=== PATIENT | male | born 1960 | race Caucasian/White ===

== ENCOUNTER 2019-05-17 17:08 | Outpatient (CLI) | payer BC, SELFPAY ==
--- NOTE | ~2019-05-17 | US_ITS ---
EXAMINATION: US venous doppler [facility] DATE: 05/17/2019 18:05 INDICATION: Right lower limb swelling. TECHNIQUE: Grayscale ultrasound images without and with compression and Doppler ultrasound images of the bilateral lower extremity veins were obtained. COMPARISON: None. FINDINGS: The visualized portions of right common femoral vein, profunda (deep) femoral vein, femoral vein, pop liteal vein, peroneal veins, posterior tibial veins, and greater saphenous vein outflow are patent. The visualized portions of left common femoral vein, profunda femoral vein, femoral vein, popliteal v ein, peroneal veins, posterior tibial veins, and greater saphenous vein outflow are patent. IMPRESSION: 1. No deep venous thrombosis. Reviewed, dictated and finalized at location A.
== END 2019-05-17 17:09 | disposition home or self-care (01) ==
PROVIDERS: PCP Internal Medicine; Visit Provider Internal Medicine
DX: R22.40 Localized swelling, mass and lump, unspecified lower limb (principal)
CPT/HCPCS: 93970

== ENCOUNTER → 2022-11-28 08:35 | Outpatient (CLI) | payer BC, SELFPAY ==
--- NOTE | ~2022-11-28 | MR_ITS ---
MRI of the lumbar spine Clinical History: Radiculopathy Technique: Axial T2-weighted images, and sagittal T1-weighted, T2-weighted, and STIR images were acqu ired. Following intravenous administration of 20 cc MultiHance gadolinium, T1-weighted fat-sat imagin g was performed in the axial and sagittal planes. Findings: No acute fracture identified. There is 4-5 mm retrolisthesis of L2 over L3. There is minima l grade 1 retrolisthesis of L4 over L5. There is posterior fusion hardware from L3 through L5, with b ilateral rods and transpedicular screws present. There are laminectomy defects at L3 and L4. No suspi cious bone marrow signal abnormality seen. At L1-L2, there is severe degenerative disc narrowing. There is diffuse mild disc bulge with moderate to advanced facet arthropathy. No maxine central canal stenosis. There is mild right neural foraminal narrowing. Left neural foramen preserved. At L2-L3, there is severe degenerative disc narrowing. There is diffuse disc bulge with moderate to a dvanced facet arthropathy. There is mild to moderate thecal sac compression, with focally prominent p osterior epidural fat is visible as well. There is moderate to severe bilateral neural foraminal narr owing. At L3-L4, there is moderate degenerative disc narrowing. There is posterior decompression with severe facet arthropathy. No central canal stenosis. There is moderate to severe left neural foraminal narr owing. Right neural foramen preserved. At L4-L5, there is minimal disc bulge with severe facet arthropathy and posterior decompression. No c entral canal stenosis. There is severe right neural foraminal narrowing and moderate to severe left n eural foraminal narrowing. At L5-S1, there is no significant disc bulge. There is severe facet arthropathy. No definite central canal stenosis. There is moderate bilateral neural foraminal narrowing. Paravertebral soft tissues are unremarkable aside from expected postoperative change. No suspicious p ostcontrast enhancement identified. Impression: Posterior fusion from L3 through L5, as detailed above. 4-5 mm retrolisthesis of L2 over L3. Moderate to severe degenerative spondylosis, as detailed above. Reviewed, dictated and finalized at location M. Impression: Posterior fusion from L3 through L5, as detailed above. 4-5 mm retrolisthesis of L2 over L3. Moderate to severe degenerative spondylosis, as detailed above.
== END ==
PROVIDERS: PCP Nurse Practitioner Family; Visit Provider Nurse Practitioner Family
DX: M54.16 Radiculopathy, lumbar region (principal); Z98.1 Arthrodesis status; M43.06 Spondylolysis, lumbar region
CPT/HCPCS: 72158; A9577

== ENCOUNTER 2023-01-20 09:20 | Outpatient (CLI) | payer BC, SELFPAY ==
--- NOTE | 2023-01-20 11:00 | NEURO_ITS ---
Impression: # Diabetic of long duration complains of increasing numbness of lower extremities with significant edema. 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 # Needle/EMG exam revealed neurogenic changes in right more than left lower extremity musccles. Nerve Conduction Studies Anti Sensory Summary Table Stim Site NR Peak (ms) P-T Amp (?V) Site1 Site2 Delta-P (ms) Dist (cm) Hira (m/s) Left Saphenous Anti Sensory (Ant Med Mall) 14cm 3.5 5.3 14cm Ant Med Mall 3.5 0.0 Right Saphenous Anti Sensory (Ant Med Mall) NO RESPONSE 14cm NR 14cm Ant Med Mall 0.0 Left Sup Fibular Anti Sensory (Ant Lat Mall) NO RESPONSE 14 cm NR 14 cm Ant Lat Mall 16.0 Right Sup Fibular Anti Sensory (Ant Lat Mall) NO RESPONSE 14 cm NR 14 cm Ant Lat Mall 16.0 Left Sural Anti Sensory (Lat Mall) NO RESPONSE Calf NR Calf Lat Mall 16.0 Right Sural Anti Sensory (Lat Mall) NO RESPONSE Calf NR Calf Lat Mall 16.0 Motor Summary Table Stim Site NR Onset (ms) O-P Amp (mV) Site1 Site2 Delta-0 (ms) Dist (cm) Hira (m/s) Left Peroneal Motor (Vastus Med) Ankle 4.5 0.9 Popit Ankle 9.8 42.0 43 Popit 14.3 0.3 Right Peroneal Motor (Vastus Med) NO RESPONSE Ankle NR Popit Ankle 0.0 Popit NR Left Tibial Motor (Abd Nelson Brev) Ankle 4.9 2.2 Knee Ankle 11.6 42.0 36 Knee 16.5 1.5 Right Tibial Motor (Abd Nelson Brev) Ankle 5.5 3.6 Knee Ankle 10.8 47.0 44 Knee 16.3 2.0 F Wave Studies NR F-Lat (ms) L-R F-Lat (ms) Left Peroneal (Mrkrs) (EDB) 56.48 Right Peroneal (Mrkrs) (EDB) DISPERSED RESPONSE NR Left Tibial (Mrkrs) (Abd Hallucis) 57.20 1.79 Right Tibial (Mrkrs) (Abd Hallucis) 58.99 1.79 EMG Side Muscle Nerve Root Ins Act Fibs Amp Dur Recrt Comment Right AntTibialis Dp Br Fibular L4-5 Nml Nml Nml >12ms Reduced Right Gastroc Tibial S1-2 Nml Nml Nml >12ms Reduced Right Fibularis Long Sup Br Fibular L5-S1 Nml Nml Nml >12ms Reduced Right Flex Dig Long Tibial L5-S2 Nml Nml Nml Nml Nml Right Ext Dig Brev Dp Br Fibular L5, S1 Nml Nml Nml >12ms Reduced Left AntTibialis Dp Br Fibular L4-5 Nml Nml Nml >12ms Reduced Left Gastroc Tibial S1-2 Nml Nml Nml >12ms Reduced Left Fibularis Long Sup Br Fibular L5-S1 Nml Nml Nml Nml Nml Left Flex Dig Long Tibial L5-S2 Nml Nml Nml Nml Nml Left Ext Dig Brev Dp Br Fibular L5, S1 Nml Nml Nml >12ms Reduced Right ExtHallLong Dp Br Fibular L5, S1 Nml Nml Nml >12ms Reduced Left ExtHallLong Dp Br Fibular L5, S1 Nml Nml Nml Nml Nml MTDD
== END 2023-01-20 09:21 | disposition home or self-care (01) ==
LOC: ANHNEURO 09:22
PROVIDERS: PCP Internal Medicine; Visit Provider Podiatrist Foot & Ankle Surgery
DX: E11.40 Type 2 diabetes mellitus with diabetic neuropathy, unspecified (principal); R94.131 Abnormal electromyogram [EMG]
CPT/HCPCS: 95886; 95911

== ENCOUNTER 2023-04-13 08:21 | Emergency (ER) | payer BC, OTHER, SELFPAY ==
[2023-04-13] VITALS (9 sets, daily range): BP systolic 105–175; BP diastolic 54–89; PULSE 53–73; RESP 15–20; TEMP 36.4; O2SAT 93–97
--- NOTE | ~2023-04-13 | XR_ITS ---
Clinical Indication: Shortness of breath PA and lateral views of the chest: Comparison: None Findings: The lungs are clear, without evidence of focal consolidation or pleural effusion. Cardiome diastinal silhouette is within normal limits. Bones and soft tissues are unremarkable. Impression: Normal chest. Reviewed, dictated and finalized at [facility]. TOR USE ASSISTANT Impression: Normal chest.
--- NOTE | 2023-04-13 08:25 | ECG_ITS ---
Measurements Intervals [place] Rate: 65 P: 65 UT: 163 QRS: -4 QRSD: 105 T: 52 QT: 407 QTc: 425 Interpretive Statements SINUS RHYTHM INCOMPLETE RIGHT BUNDLE BRANCH BLOCK [90+ ms QRS DURATION, TERMINAL R IN V1/V2, 40+ ms S IN I/aVL/V4/V5/V6] BORDERLINE ECG NO PREVIOUS ECG AVAILABLE FOR COMPARISON Electronically Signed On 04-13-2023 18:25:10 WORSHIP DIRECTOR by Chino Jones M.D.
[2023-04-13 08:47] LABS: Basophils Percent Auto 0.7 % (0.2-1.2); Eosinophils Absolute Auto 0.1 K/mm3 (0-0.3); Hematocrit 41.6 % (42.0-52.0); Hemoglobin 13.4 g/dL (14.0-18.0); Immature Granulocyte Absolute 0.03 K/mm3 (0.00-0.031); Immature Granulocyte Percent A 0.5 % (0-0.5); Lymphocytes Absolute Auto 1.66 K/mm3 (0.9-3.2); Lymphocytes Percent Auto 30.1 % (18.3-44.2); Mean Corpuscular HGB Conc 32.2 g/dl (32-36); Mean Corpuscular Volume 93.1 fl (80-100); Mean Platelet Volume 9.2 fl (7.4-10.4); Monocytes Absolute Auto 0.5 K/mm3 (0.1-0.6); Monocytes Percent Auto 9.8 % (2.6-8.5); Neutrophils Absolute Auto 3.1 K/mm3 (1.3-6.7); Neutrophils Percent Auto 56.9 % (45.5-73.1); Platelet Count Result 214 k/mm3 (150-375); Red Blood Count 4.47 M/mm3 (4.6-6.20); Red Cell Distribution Width 13.3 % (11.5-14.5); White Blood Count 5.5 K/mm3 (4.5-10.0)
[2023-04-13 08:59] LABS: Alanine Aminotransferase 82 U/L (6-50); Alkaline Phosphatase 38 U/L (38-126); Anion Gap 5 mmol/L (8-16); Aspartate Amino Transferase 65 U/L (17-59); Bilirubin,Total 0.4 mg/dL (0.2-1.3); Blood Urea Nitrogen 13 mg/dL (9-20); Calcium 9.1 mg/dL (8.4-10.2); Carbon Dioxide 28 mmol/L (22-30); Chloride 107 mmol/L (98-107); Estimated CRCL calculation 117 ml/min; Estimated Glomerular Filt Rate > 60; Glucose 174 mg/dL (65-110); Sodium 140 mmol/L (137-145)
[2023-04-13 09:40] LABS: Influenza A QL RT-PCR Negative (Negative); Influenza B QL RT-PCR Negative (Negative); RSV RNA, RT-PCR Negative (Negative); SARS-CoV-2 RNA PCR Negative (Negative)
--- NOTE | 2023-04-13 11:01 | ED.SOB ---
HPI - SOB/Dyspnea General Chief Complaint: Shortness of Breath/Dyspnea Stated Complaint: shortness of breath Time Seen by Provider: 04/13/23 08:38 History of Present Illness HPI Narrative: patient is a 62-year-old male who presents ER with shortness of breath. He has developed cough today. He feels like his lungs arm. Cough is not productive. Mild sinus congestion but no sore throat. No fevers or chills or sweats. No history of heart failure. Reports chronic edema to lower extremities. Denies orthopnea. Related Data Home Medications Medication Instructions Recorded Confirmed aspirin 81 mg tablet,delayed 81 mg PO DAILY 05/08/20 05/08/20 release (Adult Low Dose Aspirin) escitalopram oxalate 20 mg tablet 20 mg PO DAILY 05/08/20 05/08/20 (Lexapro) fenofibrate nanocrystallized 145 145 mg PO DAILY 05/08/20 05/08/20 mg tablet furosemide 40 mg tablet (Lasix) 40 mg PO QAM 05/08/20 05/08/20 lisinopril 10 mg tablet 10 mg PO DAILY 05/08/20 05/08/20 pravastatin 40 mg tablet 40 mg PO DAILY 05/08/20 05/08/20 spironolactone 100 mg tablet 100 mg PO DAILY 05/08/20 05/08/20 trazodone 150 mg tablet 150 mg PO QHS PRN Insomnia 05/08/20 05/08/20 Allergies Allergy/AdvReac Type Severity Reaction Status Date / Time Penicillins Allergy Unknown Verified 04/13/23 08:35 acetaminophen [From Percocet] AdvReac Hallucinati Verified 04/13/23 08:22 ng oxycodone [From Percocet] AdvReac Hallucinati Verified 04/13/23 08:22 ng Review of Systems Review of Systems: All systems reviewed & are unremarkable except as noted in HPI and below Constitutional: Constitutional: Reports no additional constitutional complaints ENT: Reports nasal congestion and Denies sore throat Cardiovascular: Cardiovascular: Reports no additional cardiovascular complaints Respiratory: Respiratory: Denies chest congestion, Reports cough, Reports dyspnea and Denies wheezing [facility] Past Medical History Medical History (Updated 04/13/23 @ 18:45 by Rafa Shipman MD) Anxiety Diabetes Hypertension Social History Social History (Updated 05/08/20 @ 13:31 by Nellie Mondragon MA) Smoking status: Never smoker Alcohol intake: current Drinks per week: 3 Substance use: never Exam Narrative: GENERAL: Well-appearing, well-nourished, and in no acute distress. HEAD: Normocephalic, atraumatic. ENT: Mucous membranes moist. NECK: Supple. CHEST: Clear to auscultation. No respiratory distress. HEART: Regular rate and rhythm. Normal peripheral pulses. ABDOMEN: Soft, nontender, nondistended. EXTREMITIES: Normal range of motion. +2 edema. SKIN: Warm, dry, no rash. NEURO: Alert and oriented x3. PSYCH: Normal mood and affect. Course Course Emergency Course: patient resting comfortably. Up and ambulatory without hypoxia. Cbc unremarkabl. CMP with nonspecific elevation in AST and ALT. Viral panel negative. Chest x-ray without pneumonia. Patient felt appropriate for discharge home and follow-up with PCP after receiving nebulizer treatment ambulating without hypoxia. Recommend supportive care with [id number] cold medication. Vital Signs Vital signs: Vital Signs Temperature 97.5 F L 04/13/23 08:28 Pulse Rate 68 04/13/23 08:28 Respiratory Rate 16 04/13/23 08:28 Blood Pressure 165/89 H 04/13/23 08:28 Pulse Oximetry 93 04/13/23 08:28 Oxygen Delivery Room Air 04/13/23 08:28 Temperature 97.5 F L 04/13/23 08:28 Pulse Rate 54 L 04/13/23 11:17 Respiratory Rate 20 04/13/23 11:17 Blood Pressure 175/79 H 04/13/23 11:07 Pulse Oximetry 96 04/13/23 11:15 Oxygen Delivery Room Air 04/13/23 08:31 MDM - SOB/Dyspnea Lab Data 04/13/23 08:38 04/13/23 08:38 Labs: Lab Results 04/13/23 Range/Units 08:38 WBC 5.5 (4.5-10.0) K/mm3 RBC 4.47 L (4.6-6.20) M/mm3 Hgb 13.4 L (14.0-18.0) g/dL Hct 41.6 L (42.0-52.0) % MCV 93.1 (80-100) fl MCH 30.0 (26-34)
--- NOTE | 2023-04-13 11:06 | PC.NURSE ---
ambulated pt with pulse ox. Pt dropped to 88% for a short period of time. MD notified. breathing treatment ordered for pt
[2023-04-13] MEDS: IPRATROPIUM 0.5 MG/ALBUTEROL SULFATE 2.5 MG AMPUL.NEB 3 ML INHALATION (11:15)
== END 2023-04-13 11:46 | disposition home or self-care (01) ==
PROVIDERS: Emergency Provider Emergency Medicine; PCP Internal Medicine
DX: J40 Bronchitis, not specified as acute or chronic (principal); Z20.822 Contact with and (suspected) exposure to COVID-19; I10 Essential (primary) hypertension; E11.9 Type 2 diabetes mellitus without complications; F41.9 Anxiety disorder, unspecified; Z79.82 Long term (current) use of aspirin; I45.10 Unspecified right bundle-branch block
CPT/HCPCS: 36415; 71046; 80053; 85025; 87637; 93005; 94640; 99284

== ENCOUNTER 2023-12-12 17:56 | Emergency (ER) | payer OTHER, SELFPAY ==
--- NOTE | ~2023-12-12 | CT_ITS ---
CT abdomen pelvis w con Ordering provider: Anca Xiong MD History: 63 years Male with . pain . Comparison: None. Technique: CT abdomen and pelvis with IV and without oral contrast. Automated exposure control and it erative reconstruction technique were employed. The dose-length product was 1396.42 mGy-cm. 100 mL Om nipaque 350 was given IV. Findings: VISUALIZED LOWER CHEST: Subsegmental atelectatic changes in the left lung base. Thickened lower esophagus which may reflect... UPPER ABDOMINAL ORGANS: Liver: Fat infiltration. Tiny cyst in the dome of the liver. Gallbladder: Contracted. Spleen: Normal. Benign calcifications Stomach/duodenum: Normal. Pancreas: Normal. Adrenals: Prominent medial limb of both adrenal glands. Kidneys: Small cysts seen bilaterally. Small hypodensity seen in the left kidney lower pole most like ly due to 2 adjacent cyst. 3 months Follow-up ultrasound advised. PELVIC ORGANS: The bladder is underfilled with thickened wall. Clinical correlation advised. BOWEL AND MESENTERY: Colon: No definite thickening seen in the descending colon with minimal fluid seen adjacent to the co baltazar. Colitis or diverticulitis is noted definitely seen. Clinical correlation and follow-up advised. Other parts of the: Unremarkable. No evidence of appendicitis. Postoperative changes in the sigmoid colon. Small Bowel: Normal. No obstruction. Peritoneum/mesentery: No free air. Minimal free fluid seen in the left and right paracolic more on th e left. No mesenteric lymphadenopathy. RETROPERITONEUM: Mild atheromatous disease of the abdominal aorta. No retroperitoneal lymphadenopat hy. MUSCULOSKELETAL: Superficial soft tissues: The superficial soft tissues are normal. Bones: Age appropriate degenerative changes of the spine. Pubic symphysitis. Postoperative changes in the lower lumbar area. IMPRESSION: 1. No evidence of appendicitis or intestinal obstruction. No renal stones. 2. Minimal fluid seen in the left paracolic gutter. No definite evidence of diverticulitis is not se en. Follow-up advised. 3. Underfilled urinary bladder with thickened wall. Clinical correlation advised. Reviewed, dictated and finalized at location A. IMPRESSION: 1. No evidence of appendicitis or intestinal obstruction. No renal stones. 2. Minimal fluid seen in the left paracolic gutter. No definite evidence of di verticulitis is not seen. Follow-up advised. 3. Underfilled urinary bladder with thickened wall. Clinical correlation advis ed.
[2023-12-12 17:59] VITALS: BP 149/76; PULSE 74; RESP 17; TEMP 36.4; O2SAT 96
[2023-12-12 19:09] LABS: Basophils Percent Auto 0.3 % (0.2-1.2); Eosinophils Percent Auto 0.1 % (0-4.4); Hematocrit 44.8 % (42.0-52.0); Hemoglobin 15.2 g/dL (14.0-18.0); Immature Granulocyte Absolute 0.03 K/mm3 (0.00-0.031); Immature Granulocyte Percent A 0.3 % (0-0.5); Lymphocytes Absolute Auto 1.72 K/mm3 (0.9-3.2); Lymphocytes Percent Auto 16.8 % (18.3-44.2); Mean Corpuscular HGB Conc 33.9 g/dl (32-36); Mean Corpuscular Volume 91.4 fl (80-100); Mean Platelet Volume 8.7 fl (7.4-10.4); Monocytes Absolute Auto 0.9 K/mm3 (0.1-0.6); Monocytes Percent Auto 8.5 % (2.6-8.5); Neutrophils Absolute Auto 7.6 K/mm3 (1.3-6.7); Platelet Count Result 228 k/mm3 (150-375); Red Cell Distribution Width 13.1 % (11.5-14.5); White Blood Count 10.3 K/mm3 (4.5-10.0)
--- NOTE | 2023-12-12 19:10 | PC.NURSE ---
Assumed care of patient at this time.
[2023-12-12 19:20] LABS: Alanine Aminotransferase 57 U/L (6-50); Albumin Level 4.3 g/dL (3.5-5.1); Alkaline Phosphatase 35 U/L (38-126); Anion Gap 7 mmol/L (4-12); Aspartate Amino Transferase 32 U/L (17-59); Bilirubin,Total 0.7 mg/dL (0.2-1.3); Blood Urea Nitrogen 17 mg/dL (9-20); Calcium 9.1 mg/dL (8.4-10.2); Carbon Dioxide 28 mmol/L (22-30); Chloride 101 mmol/L (98-107); Estimated CRCL calculation 99 ml/min; Estimated Glomerular Filt Rate > 60; Glucose 115 mg/dL (65-110); Lipase 137 U/L (23-300); Potassium 3.3 mmol/L (3.4-5.0); Sodium 136 mmol/L (137-145)
--- NOTE | 2023-12-12 19:27 | ED.ABDPAIN ---
HPI - Abdominal Pain General Chief Complaint: Abdominal Pain Stated Complaint: abd pain, N/V x 4 days Time Seen by Provider: 12/12/23 18:59 History of Present Illness HPI narrative: Patient is a 63-year-old male who pre the emergency department this evening complaining of nausea, vomiting the past 4 days. Patient states that he has not been able to keep anything down everything he eats or drinks just goes straight through him. Denies any bloody stools. Patient admits that his was also sick but her sickness only lasted 1 day. Patient admits that he has been having chills at home but denies documented fevers. Admits to generalized abdominal pain. Denies any chest pain or shortness of breath. No additional symptoms or concerns at this time. Related Data Home Medications Medication Instructions Recorded Confirmed aspirin 81 mg tablet,delayed 81 mg PO DAILY 05/08/20 05/08/20 release (Adult Low Dose Aspirin) escitalopram oxalate 20 mg tablet 20 mg PO DAILY 05/08/20 05/08/20 (Lexapro) fenofibrate nanocrystallized 145 145 mg PO DAILY 05/08/20 05/08/20 mg tablet furosemide 40 mg tablet (Lasix) 40 mg PO QAM 05/08/20 05/08/20 lisinopril 10 mg tablet 10 mg PO DAILY 05/08/20 05/08/20 pravastatin 40 mg tablet 40 mg PO DAILY 05/08/20 05/08/20 spironolactone 100 mg tablet 100 mg PO DAILY 05/08/20 05/08/20 trazodone 150 mg tablet 150 mg PO QHS PRN Insomnia 05/08/20 05/08/20 Allergies Allergy/AdvReac Type Severity Reaction Status Date / Time Penicillins Allergy Unknown Verified 04/13/23 08:35 acetaminophen [From Percocet] AdvReac Hallucinati Verified 04/13/23 08:22 ng oxycodone [From Percocet] AdvReac Hallucinati Verified 04/13/23 08:22 ng Review of Systems Review of Systems: All systems are reviewed and are negative unless stated otherwise in the HPI. [facility] Past Medical History Medical History Anxiety Diabetes Hypertension Social History Social History Smoking status: Never smoker Alcohol intake: current Drinks per week: 3 Substance use: never Exam Narrative: General: Alert, awake, afebrile, in no acute distress. HEENT: PERRL, no rhinorrhea, no post nasal drip, oropharynx clear. Cardiovascular: Regular rate and rhythm, no murmurs, rubs or gallops, no peripheral edema. Respiratory: Clear to auscultation bilaterally, no tachypnea, no wheezing, no rhonchi, no rubs, no respiratory distress. Abdomen: Soft, nontender, nondistended, no rebound, no guarding, no peritoneal signs. Musculoskeletal: No joint swelling or deformity, normal muscle tone. Skin: No rashes or petechia, no signs of infection. Neurological: Alert and oriented to person, place, and time. Follows all commands. No focal deficits, speech is clear and fluent. Course Vital Signs Vital signs: Vital Signs Temperature 97.5 F L 12/12/23 17:59 Pulse Rate 74 12/12/23 17:59 Respiratory Rate 17 12/12/23 17:59 Blood Pressure 149/76 H 12/12/23 17:59 Pulse Oximetry 96 12/12/23 17:59 Oxygen Delivery Room Air 12/12/23 17:59 Temperature 97.5 F L 12/12/23 17:59 Pulse Rate 64 12/12/23 20:26 Respiratory Rate 17 12/12/23 20:26 Blood Pressure 173/90 H 12/12/23 20:26 Pulse Oximetry 98 12/12/23 20:26 Oxygen Delivery Room Air 12/12/23 17:59 MDM - Abdominal Pain MDM Narrative Medical decision making narrative: The patient was evaluated by myself in the emergency department. History is obtained from patient who is an independent historian and physical exam was performed. External medical records were reviewed at this time. IV was established and pertinent tests were ordered. Patient was administered 2 L IV fluid bolus with normal saline and 4 mg of IV Zofran for nausea. Laboratory results obtained revealing a potassium 3.3, otherwise unremarkable. Patient was administered 40 m
[2023-12-12 19:35] LABS: Add Urine Microscopic? YES; Appearance Urine Cloudy (Clear); Bacteria Urine None Seen /hpf; Bilirubin Urine Negative (Negative); Blood Urine 2+ (Negative); Color Urine Yellow (Yellow); Glucose Urine UA 3+ mg/dL (Negative); Ketones Urine 1+ mg/dL (Negative); Leukocyte Esterase Ur Negative LEU/UL (Negative); Nitrate Urine Negative (Negative); Non Pathogenic Casts 0-2; Protein Urine Trace mg/dL (Negative); Specific Grav Ur 1.025 (1.001-1.035); Squamous Epithelial Cell Urine None Seen /hpf (Few); Urobilinogen Urine 0.2 mg/dL (<2.0); WBC Urine 0-5 /hpf (0-3); pH Urine 5.5 (5.0-9.0)
[2023-12-12] MEDS: POTASSIUM CHLORIDE 20 MEQ ER TABLET 40 MEQ PO (19:56)
[2023-12-12] MEDS: ONDANSETRON INJ 4 MG/2 ML VIAL IV PUSH (19:56)
[2023-12-12] MEDS: SODIUM CHLORIDE 0.9% IV 1,000 ML 999 ML IV CONT ×2 (19:57)
[2023-12-12 20:26] VITALS: BP 173/90; PULSE 64; RESP 17; O2SAT 98
--- NOTE | 2023-12-12 20:29 | PC.NURSE ---
Patient states his nausea is better at this time.
[2023-12-12 20:54] LABS: Influenza A QL RT-PCR Negative (Negative); Influenza B QL RT-PCR Negative (Negative); SARS-CoV-2 RNA PCR Negative (Negative)
== END 2023-12-12 21:20 | disposition home or self-care (01) ==
PROVIDERS: Physician Assistant; Emergency Provider Emergency Medicine; PCP Internal Medicine
DX: E86.0 Dehydration (principal); R11.2 Nausea with vomiting, unspecified; R19.7 Diarrhea, unspecified; E87.6 Hypokalemia; F41.9 Anxiety disorder, unspecified; E11.9 Type 2 diabetes mellitus without complications; I10 Essential (primary) hypertension; Z20.822 Contact with and (suspected) exposure to COVID-19
CPT/HCPCS: 36415; 74177; 80053; 81001; 83690; 85025; 87636; 96361; 96374; 99284; A9270; J2405; J7030; Q9967

== ENCOUNTER 2023-12-15 13:47 | Emergency (ER) | payer OTHER, SELFPAY ==
--- NOTE | ~2023-12-15 | CT_ITS ---
CT abdomen pelvis w con Ordering provider: Keyon Ocasio III, DO History: 63 years Male with . and persistent abd pain . Comparison: December 12, 2019 Technique: CT abdomen and pelvis with IV and without oral contrast. Automated exposure control and it erative reconstruction technique were employed. The dose-length product was 1404.39 mGy-cm. 100 mL Om nipaque 350 was given IV. Findings: VISUALIZED LOWER CHEST: Trace of pleural effusion seen in both lung bases. Minimal atelectatic change s in the left lung base. UPPER ABDOMINAL ORGANS: Liver: Fat infiltration of the liver. Tiny cyst in the right lobe superiorly tiny calcific areas in t he right left lobe. Gallbladder: Contracted. Spleen: Normal.. Calcifications. Stomach/duodenum: Thickened distal esophagus suggestive of reflux esophagitis. Pancreas: Normal. Adrenals: Slightly prominent medial limb of the fourth adrenal glands. Kidneys: Bilateral small cysts. PELVIC ORGANS: The bladder shows thickened wall. BOWEL AND MESENTERY: Colon: Postoperative changes in the sigmoid colon. The fluid seen adjacent to the descending colon is again demonstrated with no change. Diverticulosis is seen.. Slightly thickened wall of the ascending colon is seen which may indicate colitis. Normal appendix. Small Bowel: Normal. No obstruction. Peritoneum/mesentery: No free air or free fluid. No mesenteric lymphadenopathy. RETROPERITONEUM: Mild atheromatous disease of the abdominal aorta. No retroperitoneal lymphadenopat hy. MUSCULOSKELETAL: Superficial soft tissues: The superficial soft tissues are normal. Bones: Age appropriate degenerative changes of the spine. Postoperative changes in the lower spine. IMPRESSION: 1. No evidence of appendicitis or intestinal obstruction. No definite renal stones. 2. The minimal fluid seen adjacent to the descending is unchanged. 3. Slightly thickened wall of the ascending colon. Colitis cannot be excluded. 4. Sliding hiatus hernia with thickened lower esophagus suggestive of reflux esophagitis. Reviewed, dictated and finalized at location A. IMPRESSION: 1. No evidence of appendicitis or intestinal obstruction. No definite renal st ones. 2. The minimal fluid seen adjacent to the descending is unchanged. 3. Slightly thickened wall of the ascending colon. Colitis cannot be excluded. 4. Sliding hiatus hernia with thickened lower esophagus suggestive of reflux e sophagitis.
[2023-12-15 13:50] VITALS: BP 159/95; PULSE 64; RESP 19; O2SAT 96
[2023-12-15] MEDS: FAMOTIDINE 20 MG/2 ML VIAL IV PUSH (14:09)
[2023-12-15] MEDS: fentaNYL CITRATE INJ (*CRX) 100 MCG/2 ML VIAL 50 MCG IV PUSH (14:10)
[2023-12-15] MEDS: ONDANSETRON INJ 4 MG/2 ML VIAL IV PUSH (14:10)
[2023-12-15 14:11] LABS: Basophils Absolute Auto 0.1 K/mm3 (0.0-0.1); Basophils Percent Auto 0.6 % (0.2-1.2); Eosinophils Percent Auto 0.4 % (0-4.4); Hematocrit 46.2 % (42.0-52.0); Hemoglobin 15.7 g/dL (14.0-18.0); Immature Granulocyte Absolute 0.02 K/mm3 (0.00-0.031); Immature Granulocyte Percent A 0.2 % (0-0.5); Lymphocytes Absolute Auto 1.92 K/mm3 (0.9-3.2); Lymphocytes Percent Auto 21.5 % (18.3-44.2); Mean Corpuscular Hemoglobin 31.2 pg (26-34); Mean Corpuscular Volume 91.7 fl (80-100); Mean Platelet Volume 8.7 fl (7.4-10.4); Monocytes Absolute Auto 0.9 K/mm3 (0.1-0.6); Neutrophils Percent Auto 67.3 % (45.5-73.1); Platelet Count Result 220 k/mm3 (150-375); Red Blood Count 5.04 M/mm3 (4.6-6.20); Red Cell Distribution Width 12.8 % (11.5-14.5); White Blood Count 8.9 K/mm3 (4.5-10.0)
--- NOTE | 2023-12-15 14:15 | ED.ABDPAIN ---
HPI - Abdominal Pain General Chief Complaint: Abdominal Pain Stated Complaint: abd pain Time Seen by Provider: 12/15/23 13:52 History of Present Illness HPI narrative: Pt presents with persistent abdominal pain and bloating and feeling like he can't eat or drink because it will come back up but not actually vomiting much. Pt was seen here [address] days ago and had CT and labs and fluids and meds and felt better. Pt says he feels bloated and has mid abdominal pain. Pt denies fever or diarrhea. Related Data Home Medications Medication Instructions Recorded Confirmed aspirin 81 mg tablet,delayed 81 mg PO DAILY 05/08/20 05/08/20 release (Adult Low Dose Aspirin) escitalopram oxalate 20 mg tablet 20 mg PO DAILY 05/08/20 05/08/20 (Lexapro) fenofibrate nanocrystallized 145 145 mg PO DAILY 05/08/20 05/08/20 mg tablet furosemide 40 mg tablet (Lasix) 40 mg PO QAM 05/08/20 05/08/20 lisinopril 10 mg tablet 10 mg PO DAILY 05/08/20 05/08/20 pravastatin 40 mg tablet 40 mg PO DAILY 05/08/20 05/08/20 spironolactone 100 mg tablet 100 mg PO DAILY 05/08/20 05/08/20 trazodone 150 mg tablet 150 mg PO QHS PRN Insomnia 05/08/20 05/08/20 Allergies Allergy/AdvReac Type Severity Reaction Status Date / Time Penicillins Allergy Unknown Verified 12/15/23 13:53 acetaminophen [From Percocet] AdvReac Hallucinati Verified 12/15/23 13:53 ng oxycodone [From Percocet] AdvReac Hallucinati Verified 12/15/23 13:53 ng Review of Systems Review of Systems: All systems reviewed & are unremarkable except as noted in HPI and below PMFSH Past Medical History Medical History Anxiety Diabetes Hypertension Social History Social History Smoking status: Never smoker Alcohol intake: current Drinks per week: 3 Substance use: never Exam Const: General: healthy appearing and no acute distress Nutritional Appearance: well nourished Orientation/consciousness: patient oriented x3 Limitations: no limitations Resp: Effort & Inspection: normal respiratory effort Auscultation: clear to auscultation bilaterally Cardio: Rate: regular rate Rhythm: regular rhythm GI: Inspection: distended GI Palp: Yes Soft to palpation and Yes Tenderness to palpation present (GI) (mid abdomen) Auscultation: Hyperactive bowel sounds present Skin: General skin exam: normal color Rashes: no rashes Wounds: no wounds Neuro: General: patient oriented x3, moves all extremities, no meningeal signs, no focal motor deficits and CN's II-XI intact bilaterally Cranial nerves: Yes Nystagmus not present Speech: normal speech Extrem: General: normal to inspection and no clubbing, cyanosis or edema Psych: Mental Status: mental status grossly normal Affect: normal affect Attitude: cooperative Course Vital Signs Vital signs: Vital Signs Pulse Rate 64 12/15/23 13:50 Respiratory Rate 19 12/15/23 13:50 Blood Pressure 159/95 H 12/15/23 13:50 Pulse Oximetry 96 12/15/23 13:50 Oxygen Delivery Room Air 12/15/23 13:50 Pulse Rate 57 L 12/15/23 16:16 Respiratory Rate 16 12/15/23 16:16 Blood Pressure 152/82 H 12/15/23 16:16 Pulse Oximetry 98 12/15/23 16:16 Oxygen Delivery Room Air 12/15/23 13:50 MDM - Abdominal Pain MDM Narrative Medical decision making narrative: Pt presents with bloating and mid abdominal pain. Pt has history of bowel resection and had full work up 3 days ago. Pt could have SBO that has developed since last visit or the items listed in her DDx below. will get some repeat labs and repeat CT and treat pain. wbc and cmp and lipase unremarkable, some evidence of colitis on CT. danitza start on cipro and a few norco and d/c Differential Diagnosis Differential diagnosis: Likely abdominal pain, constipation, diverticulitis, gastroenteritis and small bowel obstruction Lab Data 12/15/23 14:05 12/14
[2023-12-15 14:16] VITALS: BP 157/88; PULSE 56; RESP 16; O2SAT 96
[2023-12-15 14:26] LABS: Alanine Aminotransferase 88 U/L (6-50); Albumin Level 4.3 g/dL (3.5-5.1); Alkaline Phosphatase 35 U/L (38-126); Anion Gap 8 mmol/L (4-12); Aspartate Amino Transferase 64 U/L (17-59); Bilirubin,Total 1.2 mg/dL (0.2-1.3); Blood Urea Nitrogen 12 mg/dL (9-20); Carbon Dioxide 29 mmol/L (22-30); Chloride 101 mmol/L (98-107); Estimated CRCL calculation 110 ml/min; Estimated Glomerular Filt Rate > 60; Glucose 98 mg/dL (65-110); Lipase 294 U/L (23-300); Potassium 3.4 mmol/L (3.4-5.0); Sodium 138 mmol/L (137-145)
[2023-12-15 14:28] LABS: Prothrombin Time 13.2 Seconds (11.1-14.7)
[2023-12-15 14:29] LABS: Partial Thromboplastin Time 22.7 Seconds (22.3-36.8)
[2023-12-15 15:31] VITALS: BP 148/98; PULSE 54; RESP 18; O2SAT 94
[2023-12-15 16:02] VITALS: BP 165/86; PULSE 58; RESP 16; O2SAT 98
[2023-12-15 16:16] VITALS: BP 152/82; PULSE 57; RESP 16; O2SAT 98
== END 2023-12-15 16:52 | disposition home or self-care (01) ==
PROVIDERS: Emergency Provider Emergency Medicine; PCP Internal Medicine
DX: K52.9 Noninfective gastroenteritis and colitis, unspecified (principal); I10 Essential (primary) hypertension; E11.9 Type 2 diabetes mellitus without complications; F41.9 Anxiety disorder, unspecified; Z90.49 Acquired absence of other specified parts of digestive tract; Z79.82 Long term (current) use of aspirin; Z79.899 Other long term (current) drug therapy; K44.9 Diaphragmatic hernia without obstruction or gangrene
CPT/HCPCS: 36415; 74177; 80053; 83690; 85025; 85610; 85730; 96374; 96375; 99284; J2405; J3010; Q9967